=== PATIENT | female | born 1990 | race African-American/Black ===

== ENCOUNTER 2018-06-17 11:30 | Inpatient (IN) | payer OTHER, BC, SELFPAY ==
[2018-06-17 11:48] VITALS: BMI 45.0
[2018-06-17 12:47] LABS: Hematocrit 36.3 % (37-47); Hemoglobin 12.6 g/dl (12.0-15.0); Mean Corp Hgb Conc 34.7 g/gl (32-36); Mean Corpuscular Hgb 29.9 pg (27.0-32.0); Mean Platelet Vol. 10.8 fl (6.2-12.0); Platelet Count 365 K/mm3 (150-450); RBC Distribution Width CV 13.7 % (11.6-14.6); Red Blood Count 4.22 M/mm3 (4.2-5.4); Scan Indicated on CBC? Y/N NO; White Blood Count 16.8 K/mm3 (4.4-11.0)
[2018-06-17] MEDS: Lactated Ringers 1,000 ML 50 ML IV ×2 (13:06→23:47)
[2018-06-17] MEDS: Oxytocin 30 units/NS 500 ml 30 UNITS/500 ML IV.SOLN IV (13:06)
--- NOTE | 2018-06-17 16:31 | PCM.HP.OB ---
History Date of Admission: 06/17/18 Final ALONDRA: 06/18/18 Final ALONDRA Source: US <20 weeks Gestational age: 39 Weeks and 6 Days History of this : This is a 27 year-old, G 1 P0, at 39.5 weeks gestational age with SROM in office during routine exam. pt had clear fluid- confirmed with speculum exam during visit. pt denies vaginal bleeding or contractions. Allergies No Known Allergies Allergy (Verified 06/17/18 12:42) Home Medications: Home Medications Vits [Prenatabs FA] 1 tablet PO DAILY 06/17/18 Smoking Status: Never smoker Alcohol: None Number of Fetus(es): 1 Heart Tracin mod karmen, + accels no decels TOCO Analysis: occasional History Past Pregnancies: Past Pregnancies Delivery Date Name GA/Weeks Outcome Route Weight Infant Gender Labor Length Anesthesia Delivery Location Provider FOB Labs: O+, HIV neg, hep b neg, rub imm, syphilis neg, gbs Positive Expected Infant Delivery Method: Spontaneous Vaginal Physical Exam General: Alert, Oriented x3 Abdomen: Soft, Non Tender, Gravid Neurological: Cranial nerves II-XII grossly intact SCALE SHOOTER: Normal external genitalia Estimated gestational size: Appropriate for gestational size Presentation: Cephalic Cervix Dilation (cm): 1 Station: -2 Effacement (%): 80 Assessment/Plan This is a 27 year-old, G 1P0 at 39.6 weeks gestational age with SROM, not in labor. 1) admit to L&D 2) Monitor fhr/toco 3) anticipate 4) Pitocin for induction of labor 5) PCN for GBS prophylaxis
[2018-06-17] MEDS: Nalbuphine 10 MG/ML Ampul IV (17:39)
[2018-06-17] MEDS: fentaNYL-bupivacaine (epidural) 100 ML BAG EPIDURAL (19:56)
[2018-06-18 02:31] LABS: Bacteria 0 SEEN /hpf (None Seen); Mucous, Urine 0 SEEN /hpf (<or=2+); Squamous Epithelial Cells - UA 0 SEEN /hpf (5-10)
[2018-06-18 02:34] LABS: Color, Urine Yellow (Yellow); Glucose, Dipstick Normal (Normal); Ketone-Dipstick 50 mg/dl (Negative); Leukocyte Esterase-Dipstick 25 /ul (Negative); Nitrite-Dipstick Negative (Negative); Occult Blood-Urine 250 /ul (Negative); Protein-Dipstick 15 mg/dl (Negative); Urine Bilirubin Dipstick Negative (Negative); Urine Clarity Clear (Clear); Urine Urobilinogen Normal (Normal)
[2018-06-18 02:42] LABS: Red Blood Cells-Urine 5-10 SEEN /hpf (0-5); White Blood Cells 0-5 SEEN /hpf (0-5)
[2018-06-18] MEDS: Oxytocin 30 units/NS 500 ml 30 UNITS/500 ML IV.SOLN 334 UNITS IV (05:22)
--- NOTE | 2018-06-18 05:36 | PCM.OB.VAG ---
Vaginal Delivery Maternal Presentation: Spontaneous Rupture of Membranes Method of Induction: Pitocin Amniotic Membrane Rupture Type: Spontaneous at home - in office 11:10am on 06/17/18 Amniotic Fluid Description: Clear Final ALONDRA: 06/18/18 Gestational age: 40 Weeks and 0 Days Date of Procedure: 06/18/18 Pre-Operative Diagnosis: srom, term gestation Post-Operative Diagnosis: same, live female infant Surgery/ Procedure Performed: Spontaneous Vaginal Delivery Type of Anesthesia: Epidural Description of Procedure: of live female born without complication. infant delivered with gentle downward traction until delivery of anterior shoulder- good maternal pushing effort. Presentation: Vertex Placental Delivery Description: Spontaneous Placenta Disposition: [facility] Cord Vessel Description: 3 Vessels Nuchal Cord Compression: Without compression Cord Entanglement: None Drain: Salas to straight drain Estimated Blood Loss: 250 A gender: Female (1 minute): 9 (5 minute): 10 Episiotomy Description: None Laceration: Perineal Extension/lac - repaired with 2-0 vicryl and 3-0 rapide, 2nd degree Medications given after delivery: IV Pitocin Complications: None
[2018-06-18] MEDS: Oxytocin 30 units/NS 500 ml 30 UNITS/500 ML IV.SOLN 167 UNITS IV (05:52)
[2018-06-18] MEDS: Naproxen 250 MG Tablet PO (08:52)
[2018-06-18] MEDS: Dibucaine 30 GM Tube 1 APPLIC TOPICAL (08:53)
[2018-06-18] MEDS: Senna/Docusate Sodium 1 Tablet PO (12:49)
[2018-06-18] MEDS: oxyCODONE 5 MG Tablet PO ×3 (12:50→23:04)
[2018-06-18 12:52] VITALS: BP 93/53; PULSE 88; RESP 20; TEMP 36.1
[2018-06-18 16:00] VITALS: BP 104/72; PULSE 108; RESP 18; TEMP 36.9
[2018-06-18 20:20] VITALS: BP 123/58; PULSE 100; RESP 18; TEMP 36.3; O2SAT 98
[2018-06-19 00:50] VITALS: BP 131/62; PULSE 85; RESP 18; TEMP 36.3; O2SAT 100
[2018-06-19 04:35] VITALS: BP 101/61; PULSE 94; RESP 16; TEMP 36.8; O2SAT 100
[2018-06-19 08:15] VITALS: BP 110/62; PULSE 89; RESP 16; TEMP 37.3
[2018-06-19] MEDS: Naproxen 250 MG Tablet PO (08:15)
--- NOTE | 2018-06-19 08:43 | PCM.PN.OB ---
Subjective: Patient sitting up in bed with at bedside providing support. Patient reports she was able to sleep okay through the night. Patient and reports feelings of anxious when baby had spit up. Patient notes baby is intermittently latching without difficulty, other times patient needs assistance to help baby latch. Patient denies issues with urination or ambulation. Denies scotoma, DAVID or dizziness. Objective: Nipples with a few ecchymoses at nipple tips, no cracks or blisters noted Abdomen NT x 4 quadrants, FF midline @ 1FB below umbilicus +2/4 reflexes in LE, trace pedal edema Scant rubra lochia, perineum well-approximated Negative calf tenderness to palpation BL in LE - Physical Exam General: Alert, Oriented x3, Cooperative HEENT: Atraumatic, Normocephalic Neck: Supple Lungs: Normal air movement Cardiovascular: Regular rate, No murmurs Abdomen: Soft, Non Tender Extremities: No edema, Capillary Refill Less than 3 Seconds Skin: No rashes, No breakdown Musculoskeletal: No Tenderness to Palpation of Joints or Extremities Neurological: Cranial nerves II-XII grossly intact Psych/Mental Status: Normal Affect, Appropriate Vital Signs Temp Pulse Resp BP Pulse Ox 98.3 F 94 16 101/61 100 06/19/18 04:35 06/19/18 04:35 06/19/18 04:35 06/19/18 04:35 06/19/18 04:35 Oxygen Delivery Method Room Air Weight: 262 lb 5.601 oz Body Mass Index (BMI) 45.0 Intake and Output for Last 24 Hours 06/17/18 06/18/18 06/19/18 23:59 23:59 23:59 Intake Total 3649 / 3649 Output Total 2550 / 2550 Balance 1099 / 1099 Medical Necessity - Tobacco Use Smoking Status: Never smoker Assessment/Plan A: 27 y/o s/p , PPD #1, Normal Course P: 1) Anticipatory teaching done - normal s/s including coughing, sneezing and spitting up excess amniotic fluid reviewed 2) consultation today 3) Anticipate discharge to home tomorrow Tila Augustine APRN-CHRISTINA
[2018-06-19] MEDS: Senna/Docusate Sodium 1 Tablet PO (10:19)
[2018-06-19 13:48] VITALS: BP 112/58; PULSE 90; RESP 16; TEMP 36.4
[2018-06-19 21:54] VITALS: BP 111/59; PULSE 102; RESP 18; TEMP 36.6; O2SAT 98
[2018-06-20 02:20] VITALS: BP 101/64; PULSE 83; RESP 18; TEMP 36.3; O2SAT 100
--- NOTE | 2018-06-20 08:57 | PCM.PN.OB ---
Subjective: Doing well per patient and nursing staff. with minimal difficulty. Voiding and passing flatus. Ambulating and taking PO without difficulty. Denies headache, visual changes, chest pain, shortness of breath, increased vaginal bleeding or pain. Planning D/C home today. - Physical Exam General: Alert, Oriented x3, Cooperative Lungs: Clear to auscultation, Normal air movement, No rhonchi, No wheeze Cardiovascular: Regular rate, Regular Rhythm, No murmurs Abdomen: Bowel Sounds Present, Soft, - - Fundus firm 2 below U Extremities: No edema Psych/Mental Status: Normal Affect, Appropriate Vital Signs Temp Pulse Resp BP Pulse Ox 97.4 F L 83 18 101/64 100 06/20/18 02:20 06/20/18 02:20 06/20/18 02:20 06/20/18 02:20 06/20/18 02:20 Oxygen Delivery Method Room Air Weight: 262 lb 5.601 oz Body Mass Index (BMI) 45.0 Intake and Output for Last 24 Hours 06/18/18 06/19/18 06/20/18 23:59 23:59 23:59 Intake Total 3649 / 3649 Output Total 2550 / 2550 Balance 1099 / 1099 Medical Necessity - Tobacco Use Smoking Status: Never smoker Assessment/Plan A: PPD #2 P: 1) Planning D/C home today. D/C order placed and instructions given. 2) Follow up in 2 weeks and 6 weeks for visit.
--- NOTE | 2018-06-20 09:00 | PCM.DCVAG ---
Discharge Diet: No Restrictions Discharge Activity: Return to Normal Activity, May not drive while taking narcotic pain medications., May Shower, May Take a Tub Bath May resume sexual activity in: 4-6 weeks Weight Bearing Status: Weight bearing as tolerated Call your doctor if your incision/area has: Continuous Slow Oozing, Sudden Increased Bleeding, Increased Pain/ Swelling, Increased Redness, Foul Smelling Discharge Call your doctor if you observe: Fever of 101 or Higher, Numbness or Tingling, Inability to urinate, Inability to have a bowel movement, Using more than one pad per hour, Shortness of breath, Chest pain, Increased palpitations (irregular heartbeat), Calf discomfort, Uncontrolled pain Additional Instructions: If you experience any of the following, contact your healthcare provider. Bleeding that soaks a pad every hour for 2 hours Fever 100.4 or higher Unrelieved incision or abdominal pain Swelling, redness, discharge or bleeding from your incision or episiotomy site Your incision begins to separate Problems urinating (including inability to urinate or burning while urinating). Visual changes Severe headache Flu-like symptoms Pain or redness in one of both of your breasts Pain, warmth, tenderness or swelling in your legs, especially the calf area Frequent nausea and vomiting Symptoms of depression or anxiety If you experience any of the following, call 911 or go to the nearest Emergency Room. Chest pain Problems breathing Seizure activity Partial or complete paralysis of a body part, slurred speech, weakness or drooping of the face, or a sudden inability to walk or hold your balance Allergies/Adverse Reactions: Allergies No Known Allergies Allergy (Verified 06/17/18 12:42) Medications to take at Discharge Vits [Prenatabs FA] 1 tablet PO DAILY 06/17/18 Please Follow Up With: Rhonda El MD When: Call to make an appointment with your doctor in 2 weeks and 6 weeks. If you had elevated Blood Pressure or 4th degree laceration you will need to be seen in 2 weeks. Primary Care Physician: Care Physician,No Primary [Primary Care Provider] - Test Results: Test results from this visit will be discussed in further detail at your follow-up appointment, if applicable.
[2018-06-20 09:18] VITALS: BP 108/69; PULSE 84; RESP 24; TEMP 36.2; O2SAT 97
[2018-06-20 14:45] VITALS: BP 106/66; PULSE 91; TEMP 36.4; O2SAT 96
== END 2018-06-20 16:25 | disposition home or self-care (01) | DRG 775 ==
PROVIDERS: Admitting Provider Obstetrics & Gynecology; Visit Provider Obstetrics & Gynecology
DX: O42.02 Full-term premature rupture of membranes, onset of labor within 24 hours of rupture (principal); O70.1 Second degree perineal laceration during delivery; O99.824 Streptococcus B carrier state complicating childbirth; Z3A.40 40 weeks gestation of pregnancy; Z37.0 Single live birth
CPT/HCPCS: 59025; 59050; 81001; 85027; 86850; 86900; 99218; J7120; G0378

== ENCOUNTER → 2020-12-05 10:22 | Outpatient (CLI) | payer OTHER, SELFPAY | PROVIDERS: PCP Student in an Organized Health Care Education/Training Program; Visit Provider Obstetrics & Gynecology | DX: Z03.818 Encounter for observation for suspected exposure to other biological agents ruled out (principal) | CPT/HCPCS: 87635; C9803; U0002; U0003 ==

== ENCOUNTER 2020-12-07 14:05 | Inpatient (IN) | payer OTHER, SELFPAY ==
[2020-12-07] VITALS (38 sets, daily range): BP systolic 92–156; BP diastolic 51–89; PULSE 69–198; TEMP 36.6–37.7; O2SAT 98–100; BMI 48.2
[2020-12-07 14:04] LABS: ROM Internal Control Test YES-OK TO RESULT pt. (Internal QC)
[2020-12-07 14:05] LABS: ROM Patient Test POSITIVE (Negative)
--- NOTE | 2020-12-07 14:14 | NURSING ---
lab called 1305 and MATTEO positive
[2020-12-07] MEDS: Lactated Ringers 1,000 ML 50 ML IV (14:40)
[2020-12-07 14:56] LABS: Absolute Lymphocyte Count 2.75 X10^3/uL (0.83-4.51); Absolute Neutrophil Count 13.3 X10^3/uL (2.0-7.7); Basophil# 0.03 X10^3/uL; Basophil% 0.2 % (0-1); Eosinophil# 0.16 X10^3/uL; Eosinophils% 0.9 % (0-5); Hematocrit 38.6 % (37-47); Lymphocyte # 2.75 X10^3/ul (4.0); Lymphocyte % 15.8 % (19-41); Mean Corp Hgb Conc 33.7 g/dL (32-36); Mean Corpuscular Hgb 29.1 pg (27.0-32.0); Mean Corpuscular Volume 86.5 fL (81-99); Mean Platelet Vol. 10.5 fl (6.2-12.0); Monocyte# 1.05 X10^3/uL; NRBC Flagged by Analyzer 0 % (0-5); Neutrophil # 13.33 X10^3/uL (2.7-7.7); Neutrophil % 76.3 % (47-70); Platelet Count 363 K/mm3 (150-450); RBC Distribution Width CV 14.1 % (11.6-14.6); RBC Distribution Width SD 44.2 fl (35.1-43.9); Red Blood Count 4.46 M/mm3 (4.2-5.4); White Blood Count 17.5 K/mm3 (4.4-11.0)
[2020-12-07] MEDS: Oxytocin 30 units/NS 500 ml 30 UNITS/500 ML IV.SOLN IV (15:03)
[2020-12-07] MEDS: fentaNYL 100 MCG/2 ML Ampul IV (17:34)
--- NOTE | 2020-12-07 17:45 | PCM.HP.OB ---
- Problem List (1) Obesity affecting Status: Acute (2) History of spontaneous Status: Acute (3) Positive GBS test Status: Acute (4) PROM (premature rupture of membranes) Status: Acute History Date of Admission: 06/17/18 Final ALONDRA: 12/13/20 Final ALONDRA Source: US <20 weeks Gestational age: 39 Weeks and 1 Days History of this : This is a 30 year-old, G [3], P [1011], at 39 weeks gestational age is to labor and delivery room with gross rupture of membranes. No contractions at time of arrival. Rupture of membranes around 11 AM today. Denied any vaginal bleeding. Good movement. complicated by obesity with pregravid BMI 45.6 and no weight gain during . Allergies No Known Allergies Allergy (Verified 06/17/18 12:42) Home Medications: Home Medications Vits [Prenatabs FA] 1 tablet PO DAILY 06/17/18 Smoking Status: Never smoker Alcohol: None Number of Fetus(es): 1 NST - FHR Rate Baby A Baseline: 130 Variability:: Moderate Accelerations:: 15 x 15 Decelerations:: None FHR Category:: Category I Uterine Activity:: Irregular 2-3 mintues, mild History Past Pregnancies: Past Pregnancies Delivery Date Name GA/ Weeks Outcome Route Wt Sex Labor Length Anesthesia Delivery Location Provider FOB Labs: COVID 19 negative GBS positive RPR negative 1hr gct 102 normal GC/CT negative Urine tox screen negative RPR negative Rubella Immune HBsAG negative HIV negative O positive HepCAB negative Expected Infant Delivery Method: Spontaneous Vaginal Review of Systems Constitutional: Denies: Chills, Fever, Weight Change HEENT: Denies: Head Aches, Sinus Congestion, Sinus Drainage Cardiovascular: Denies: Chest Pain, Palpitations Respiratory: Denies: Cough, Shortness of breath at rest, Sputum production Gastrointestinal: Denies: Abdominal Pain, Nausea, Vomiting Genitourinary: Denies: Dysuria Musculoskeletal: Denies: Joint Pain, Joint Tenderness Skin: Denies: Rash, Wounds Neurological: Denies: Numbness, Tingling, Focal weakness Psychiatric: Denies: Anxiety, Depression, Homicidal Ideations, Suicidal Ideations Hematologic/ Lymphatic: Denies: Easy Bruising, Easy Bleeding Physical Exam Vitals: Vital Signs Temp Pulse BP 98.8 F 97 133/80 H 12/07/20 13:38 12/07/20 16:55 12/07/20 16:55 Presentation: Cephalic Cervix Dilation (cm): 1 - Per nursing staff Station: -2 Effacement (%): 70 Assessment/Plan All Active Problems Obesity affecting (Acute) History of spontaneous (Acute) Positive GBS test (Acute) PROM (premature rupture of membranes) (Acute) This is a 30 year-old, G [3], P [1011], at 39 weeks gestational age. PROM Category 1 Maternal Obesity 1) Admit to labor and delivery 2) routine labs. 3) COVID-19 negative 4) GBS positive. Will treat with penicillin G 5 million then 3 million IV every 4 hours until delivery. 5) PROM, will initiate active management and Pitocin titration per protocol 6) continuous EFM 7) epidural for pain management 8) Dr. Rico collaborative physician and notified of patient admission and status
[2020-12-07] MEDS: Lactated Ringers 500 ML 999 ML IV ×3 (17:57→20:40)
[2020-12-07] MEDS: fentaNYL-bupivacaine (epidural) 100 ML BAG EPIDURAL (19:08)
[2020-12-07] MEDS: Amnioinfusion- 0.9% NS 1,000 ML IV.SOLN. INTRA-UTER (20:54)
[2020-12-07] MEDS: Oxytocin 30 units/NS 500 ml 30 UNITS/500 ML IV.SOLN 334 UNITS IV (21:45)
--- NOTE | 2020-12-07 22:05 | PCM.OPRPT ---
Problem List (1) Obesity affecting Status: Acute (2) History of spontaneous Status: Acute (3) Positive GBS test Status: Acute (4) PROM (premature rupture of membranes) Status: Acute (5) Vaginal delivery Status: Acute (6) First degree perineal laceration Status: Acute Vaginal Delivery Maternal Presentation: Spontaneous Rupture of Membranes Method of Induction: Pitocin Amniotic Membrane Rupture Type: Spontaneous at home Amniotic Fluid Description: Clear Final ALONDRA: 12/15/20 Gestational age: 38 Weeks and 6 Days Date of Procedure: 12/07/20 Pre-Operative Diagnosis: PROM Post-Operative Diagnosis: , first degree perineal laceration Surgery/ Procedure Performed: Spontaneous Vaginal Delivery Type of Anesthesia: Epidural Description of Procedure: Progressed to complete with FHR down to 75-90s with variable decelerations. Epidural for pain management and effective. Pushing initiated and strong effort. of viable male over first degree perineal laceration at 2140. APGARS 7,9. Infant head delivered with nuchal cord x2, delivered through. placed on maternal abdomen, mouth and nares suctioned for secretions. with poor tone and respiratory effort, Cord doubly clamped and cut, handed to awaiting nursery staff, strong cry. Pitocin started for active 3rd stage management. Placenta delivered with expression, intact, 3 vessel cord. Perineum inspected and revealed first degree perineal laceration, repaired with 3.0 vicryl rapide. Vaginal sweep completed. Fundus firm and hemostasis achieved. EBL 300ml. Sponge and instrument count correct by me. Mom and baby stable, planning to breastfeed, family bonding well. notified of patient delivery. Presentation: Vertex Placental Delivery Description: Spontaneous Placenta Disposition: [facility] Cord Vessel Description: 3 Vessels Nuchal Cord Compression: Without compression Cord Gases drawn per routine: ABG, VBG Cord Entanglement: Around neck x 2, loose Estimated Blood Loss: 300 ml A gender: Male (1 minute): 7 (5 minute): 9 Episiotomy Description: None Laceration: None Medications given after delivery: IV Pitocin Complications: None
[2020-12-08] VITALS (13 sets, daily range): BP systolic 109–127; BP diastolic 54–67; PULSE 75–104; RESP 14–18; TEMP 36.5–37.7; O2SAT 98–99
[2020-12-08] MEDS: 0.9% Saline Lock 10 ML Syringe IV (00:11)
--- NOTE | 2020-12-08 04:54 | NURSING ---
pt missed hat in toilet at this time
[2020-12-08] MEDS: Ibuprofen 600 MG Tablet PO ×2 (05:47→16:46)
[2020-12-08] MEDS: Acetaminophen 500 MG Tablet 1000 MG PO ×2 (06:01→21:59)
[2020-12-08 06:04] LABS: Hematocrit 35.3 % (37-47); Hemoglobin 11.7 g/dL (12.0-15.0); Mean Corp Hgb Conc 33.1 g/dL (32-36); Mean Corpuscular Hgb 28.6 pg (27.0-32.0); Mean Corpuscular Volume 86.3 fL (81-99); Mean Platelet Vol. 10.8 fl (6.2-12.0); Platelet Count 295 K/mm3 (150-450); RBC Distribution Width CV 14.2 % (11.6-14.6); RBC Distribution Width SD 43.9 fl (35.1-43.9); Red Blood Count 4.09 M/mm3 (4.2-5.4); White Blood Count 18.7 K/mm3 (4.4-11.0)
--- NOTE | 2020-12-08 08:21 | PCM.PN.OB ---
Patient Problems: Active and Suspected Problems Obesity affecting (Acute) History of spontaneous (Acute) Positive GBS test (Acute) PROM (premature rupture of membranes) (Acute) Vaginal delivery (Acute) First degree perineal laceration (Acute) Subjective: Patient seen at bedside. Sitting in rocking chair with baby. going well. Patient ambulating and voiding without difficulty. Unsure if desires discharge home tonight or tomorrow. - Physical Exam Vitals/I&O's: Vital Signs Temp Pulse Resp BP Pulse Ox 99.8 F H 104 H 18 119/58 L 99 12/08/20 03:19 12/08/20 03:20 12/08/20 03:19 12/08/20 03:20 12/08/20 00:18 Oxygen Delivery Method Room Air Weight: 272 lb 9.6 oz Body Mass Index (BMI) 48.2 Intake and Output for Last 24 Hours 12/06/20 12/07/20 12/08/20 23:59 23:59 23:59 Intake Total 2445.85 / 2445.85 333 / 333 Output Total 700 / 700 Balance 2445.85 / 2445.85 -367 / -367 General: Alert, Oriented x3 HEENT: Atraumatic, PERRLA, EOMI, Normocephalic Neck: Supple, No JVD Lungs: Normal air movement Cardiovascular: Regular rate Abdomen: Soft, Non Tender Extremities: No edema, Capillary Refill Less than 3 Seconds Skin: No rashes Neurological: Cranial nerves II-XII grossly intact Laboratory Results 12/07/20 13:45: Vag Amniotic Fld Detect POSITIVE H 12/07/20 14:40: WBC 17.5 H, RBC 4.46, Hgb 13.0, Hct 38.6, MCV 86.5, MCH 29.1, MCHC 33.7, RDW Std Deviation 44.2 H, RDW Coeff of Tiburcio 14.1, Plt Count 363, MPV 10.5, Immature Gran % (Auto) 0.800, Neut % (Auto) 76.3 H, Lymph % (Auto) 15.8 L, [place] % (Auto) 6.0, Eos % (Auto) 0.9, Baso % (Auto) 0.2, Absolute Neuts (auto) 13.3 H, Absolute Lymphs (auto) 2.75, Nucleated RBC % 0 12/07/20 14:40: Blood Type O POSITIVE, Antibody Screen NEGATIVE 12/08/20 05:53: WBC 18.7 H, RBC 4.09 L, Hgb 11.7 L, Hct 35.3 L, MCV 86.3, MCH 28.6, MCHC 33.1, RDW Std Deviation 43.9, RDW Coeff of Tiburcio 14.2, Plt Count 295, MPV 10.8 Current Medications Acetaminophen (Acetaminophen 500 Mg Tablet) 1,000 mg PO Q8H PRN PRN PRN Reason: Pain Score 1-3 Last Admin: 12/08/20 06:01 Dose: 1,000 mg Documented by: Bisacodyl (Bisacodyl 10 Mg Suppository) 10 mg RECTAL UD PRN PRN Reason: If no BM Dibucaine (Dibucaine 30 Gm Tube) 1 applic TOPICAL TID PRN PRN; Protocol PRN Reason: Discomfort Hydrocortisone (Hydrocortisone 2.5% Crm) 1 applic TOPICAL TID PRN PRN; Protocol PRN Reason: Discomfort Ibuprofen (Ibuprofen 600 Mg Tablet) 600 mg PO Q6H PRN PRN PRN Reason: Pain Score 1-3 Last Admin: 12/08/20 05:47 Dose: 600 mg Documented by: Methylergonovine Maleate (Methylergonovine 0.2 Mg/Ml Ampul) 0.2 mg IM X1 PRN PRN Reason: Excess bleeding/uterine atony Ondansetron HCl (Ondansetron 4 Mg/2 Ml Vial) 4 mg IV Q4H PRN PRN PRN Reason: Nausea Senna/Docusate Sodium (Senna/Docusate Sodium 1 Tablet) 1 - 2 tablet PO DAILY PRN PRN PRN Reason: Constipation Simethicone (Simethicone 80 Mg Tablet) 80 mg PO PCHS PRN PRN Reason: Indigestion/Stomach pain Sodium Chloride (0.9% Saline Lock 10 Ml Syringe) 5 - 15 ml IV UD PRN PRN Reason: SALINE FLUSH Last Admin: 12/08/20 00:11 Dose: 10 ml Documented by: Medical Necessity - Tobacco Use Smoking Status: Never smoker Assessment/Plan All Active Problems Obesity affecting (Acute) History of spontaneous (Acute) Positive GBS test (Acute) PROM (premature rupture of membranes) (Acute) Vaginal delivery (Acute) First degree perineal laceration (Acute) PPD #1 - 1st degree laceration Pain control Routine care Breast feeding support Anticipate discharge home tomorrow
[2020-12-09 02:13] VITALS: BP 136/71; PULSE 87; RESP 18; TEMP 36.7
[2020-12-09 02:17] VITALS: BP 136/71; PULSE 87
[2020-12-09 08:30] VITALS: BP 129/76; PULSE 88; RESP 14; TEMP 36.8
--- NOTE | 2020-12-09 09:05 | PCM.PN.OB ---
Patient Problems: Active and Suspected Problems Obesity affecting (Acute) History of spontaneous (Acute) Positive GBS test (Acute) PROM (premature rupture of membranes) (Acute) Vaginal delivery (Acute) First degree perineal laceration (Acute) Subjective: No complaints - Physical Exam Vitals/I&O's: Vital Signs Temp Pulse Resp BP Pulse Ox 98.1 F 87 18 136/71 H 98 12/09/20 02:13 12/09/20 02:17 12/09/20 02:13 12/09/20 02:17 12/08/20 19:56 Oxygen Delivery Method Room Air Weight: 272 lb 9.6 oz Body Mass Index (BMI) 48.2 Intake and Output for Last 24 Hours 12/07/20 12/08/20 12/09/20 23:59 23:59 23:59 Intake Total 2445.85 / 2445.85 333 / 333 Output Total 700 / 700 Balance 2445.85 / 2445.85 -367 / -367 General: Alert, Oriented x3 Abdomen: Soft, Non Tender, Non-Distended - ff mid & below umb Current Medications Acetaminophen (Acetaminophen 500 Mg Tablet) 1,000 mg PO Q8H PRN PRN PRN Reason: Pain Score 1-3 Last Admin: 12/08/20 21:59 Dose: 1,000 mg Documented by: Bisacodyl (Bisacodyl 10 Mg Suppository) 10 mg RECTAL UD PRN PRN Reason: If no BM Dibucaine (Dibucaine 30 Gm Tube) 1 applic TOPICAL TID PRN PRN; Protocol PRN Reason: Discomfort Hydrocortisone (Hydrocortisone 2.5% Crm) 1 applic TOPICAL TID PRN PRN; Protocol PRN Reason: Discomfort Ibuprofen (Ibuprofen 600 Mg Tablet) 600 mg PO Q6H PRN PRN PRN Reason: Pain Score 1-3 Last Admin: 12/08/20 16:46 Dose: 600 mg Documented by: Methylergonovine Maleate (Methylergonovine 0.2 Mg/Ml Ampul) 0.2 mg IM X1 PRN PRN Reason: Excess bleeding/uterine atony Ondansetron HCl (Ondansetron 4 Mg/2 Ml Vial) 4 mg IV Q4H PRN PRN PRN Reason: Nausea Senna/Docusate Sodium (Senna/Docusate Sodium 1 Tablet) 1 - 2 tablet PO DAILY PRN PRN PRN Reason: Constipation Simethicone (Simethicone 80 Mg Tablet) 80 mg PO PCHS PRN PRN Reason: Indigestion/Stomach pain Sodium Chloride (0.9% Saline Lock 10 Ml Syringe) 5 - 15 ml IV UD PRN PRN Reason: SALINE FLUSH Last Admin: 12/08/20 00:11 Dose: 10 ml Documented by: Medical Necessity - Tobacco Use Smoking Status: Never smoker Assessment/Plan All Active Problems Obesity affecting (Acute) History of spontaneous (Acute) Positive GBS test (Acute) PROM (premature rupture of membranes) (Acute) Vaginal delivery (Acute) First degree perineal laceration (Acute) PPD#2 D/c home
--- NOTE | 2020-12-09 09:06 | DCINST_ITS ---
Discharge Diet: No Restrictions Discharge Activity: May Drive, May Shower May resume sexual activity in: 6 weeks Additional Instructions: If you experience any of the following, contact your healthcare provider. * Bleeding that soaks a pad every hour for 2 hours * Fever 100.4 or higher * Unrelieved incision or abdominal pain * Swelling, redness, discharge or bleeding from your incision or episiotomy site * Your incision begins to separate * Problems urinating (including inability to urinate or burning while urinating). * Visual changes * Severe headache * Flu-like symptoms * Pain or redness in one of both of your breasts * Pain, warmth, tenderness or swelling in your legs, especially the calf area * Frequent nausea and vomiting * Symptoms of depression or anxiety If you experience any of the following, call 911 or go to the nearest Emergency Room. * Chest pain * Problems breathing * Seizure activity * Partial or complete paralysis of a body part, slurred speech, weakness or drooping of the face, or a sudden inability to walk or hold your balance Allergies/Adverse Reactions: Allergies No Known Allergies Allergy (Verified 06/17/18 12:42) Medications to take at Discharge Vits [Prenatabs FA ] 1 tablet PO DAILY 06/17/18 Acetaminophen [Tylenol] 1,000 mg PO Q8H PRN PRN tablet 12/09/20 Ibuprofen [Motrin] 600 mg PO Q6H PRN PRN tablet 12/09/20 Primary Care Physician: Vinny Williamson DO [Primary Care Provider] - Test Results: Test results from this visit will be discussed in further detail at your follow- up appointment, if applicable.
--- NOTE | 2020-12-09 09:06 | PCM.DCVAG ---
Discharge Diet: No Restrictions Discharge Activity: May Drive, May Shower May resume sexual activity in: 6 weeks Additional Instructions: If you experience any of the following, contact your healthcare provider. Bleeding that soaks a pad every hour for 2 hours Fever 100.4 or higher Unrelieved incision or abdominal pain Swelling, redness, discharge or bleeding from your incision or episiotomy site Your incision begins to separate Problems urinating (including inability to urinate or burning while urinating). Visual changes Severe headache Flu-like symptoms Pain or redness in one of both of your breasts Pain, warmth, tenderness or swelling in your legs, especially the calf area Frequent nausea and vomiting Symptoms of depression or anxiety If you experience any of the following, call 911 or go to the nearest Emergency Room. Chest pain Problems breathing Seizure activity Partial or complete paralysis of a body part, slurred speech, weakness or drooping of the face, or a sudden inability to walk or hold your balance Allergies/Adverse Reactions: Allergies No Known Allergies Allergy (Verified 06/17/18 12:42) Medications to take at Discharge Vits [Prenatabs FA ] 1 tablet PO DAILY 06/17/18 Acetaminophen [Tylenol] 1,000 mg PO Q8H PRN PRN tablet 12/09/20 Ibuprofen [Motrin] 600 mg PO Q6H PRN PRN tablet 12/09/20 Primary Care Physician: Vinny Williamson DO [Primary Care Provider] - Test Results: Test results from this visit will be discussed in further detail at your follow-up appointment, if applicable.
[2020-12-09 09:26] VITALS: BP 120/68; PULSE 93
[2020-12-09] MEDS: Senna/Docusate Sodium 1 Tablet PO (09:36)
[2020-12-09] MEDS: Ibuprofen 600 MG Tablet PO (09:37)
[2020-12-09 12:32] VITALS: BP 124/68; PULSE 72; RESP 16; TEMP 36.8
== END 2020-12-09 12:45 | disposition home or self-care (01) | DRG 807 ==
LOC: WPOUT 14:15 → WP 14:15
PROVIDERS: Admitting Provider Advanced Practice Midwife; PCP Student in an Organized Health Care Education/Training Program; Referring Provider Advanced Practice Midwife; Visit Provider Advanced Practice Midwife
DX: O42.92 Full-term premature rupture of membranes, unspecified as to length of time between rupture and onset of labor (principal); Z37.0 Single live birth; O99.824 Streptococcus B carrier state complicating childbirth; E66.9 Obesity, unspecified; O99.214 Obesity complicating childbirth; O76 Abnormality in fetal heart rate and rhythm complicating labor and delivery; Z3A.38 38 weeks gestation of pregnancy; O70.0 First degree perineal laceration during delivery; O69.81X0 Labor and delivery complicated by cord around neck, without compression, not applicable or unspecified
CPT/HCPCS: 59050; 84112; 85025; 85027; 86850; 86900; 86901; 99218; J7030; J7120; A4216; G0378

== ENCOUNTER 2022-05-02 07:00 | Inpatient (IN) | payer OTHER, SELFPAY ==
[2022-05-02] VITALS (74 sets, daily range): BP systolic 101–160; BP diastolic 54–82; PULSE 94–130; RESP 16; TEMP 36.1–37.1; O2SAT 85–100; BMI 48.3
[2022-05-02] MEDS: Lactated Ringers 1,000 ML 50 ML IV (07:35)
[2022-05-02] MEDS: 0.9% Normal Saline Single 100 ML IV.SOLN. INTRA-UTER (07:45)
--- NOTE | 2022-05-02 07:50 | PCM.HP.OB ---
HPI - General General Date of Admission: 05/02/22 HPI Narrative KEENA FRAUSTO, is a 31 F at 39 weeks who presents for induction of labor due to morbid obesity and BMI of 48. Maternal Data Information Final ALONDRA: 05/09/22 Gestational age: 39 weeks PFSH PFSH Home Medications vits,calcium no.78-iron fumarate-folic acid 29 mg-1 mg tablet (Prenatabs FA) 1 tab PO DAILY 06/17/18 [History Last Taken 12/07/20] acetaminophen 500 mg tablet 1,000 mg PO Q8H PRN PRN Pain Score 1-3 05/02/22 [History Last Taken Unknown] aspirin 05/02/22 [History Last Taken 04/29/22 81 mg] Allergy/AdvReac Type Severity Reaction Status Date / Time No Known Allergies Allergy Verified 05/02/22 07:41 Family History (Updated 05/02/22 @ 08:04 by Eli Valentin RN) Father Diabetes Grandmother Cancer Surgical History Hx of tonsillectomy [place] teeth removed Social History Smoking Status: Never smoker History Elective abortions Hx Para 2 Spontaneous abortions Hx # Term Pregnancies Ectopic pregnancies Hx # Pregnancies Multiple births # of living children NST FHR Rate Baby A Baseline: 125 Variability:: Moderate Accelerations:: 15 x 15 FHR Category:: Category I Uterine Activity:: Infrequent ROS Constitutional Constitutional: Reports systems reviewed and no addt'l complaints, except as documented; Denies headache(s) Eyes Eyes: Denies acute decrease in peripheral vision, blurry vision or change in vision ENT HEENT: Reports systems reviewed and no addt'l complaints, except as documented Cardiovascular Cardiovascular: Denies chest pain or dizziness Respiratory/Chest Respiratory/Chest: Denies cough, dyspnea, dyspnea on exertion, shortness of breath at rest or shortness of breath with exertion Gastrointestinal Gastrointestinal: Denies abdominal pain, diarrhea, nausea or vomiting Genitourinary Genitourinary: Denies abdominal discomfort or movement Musculoskeletal Musculoskeletal: Denies limited range of motion Integumentary Integumentary: Reports systems reviewed and no addt'l complaints, except as documented Neurologic Neurologic: Reports systems reviewed and no addt'l complaints, except as documented Psychiatric Psychiatric: Reports systems reviewed and no addt'l complaints, except as documented Endocrine Endocrinology: Reports systems reviewed and no addt'l complaints, except as documented Hematologic/Lymphatic Hematologic/Lymphatic: Reports systems reviewed and no addt'l complaints, except as documented Allergic/Immunologic Allergic/Immunologic: Reports systems reviewed and no addt'l complaints, except as documented Vital Signs Vital Signs Vital Signs: Weight Weight: 273 lb Body Mass Index (BMI) 48.3 Physical Exam Const alert and oriented x3 General Appearance: cooperative Orientation / Consciousness: awake, oriented to person, oriented to place and oriented to time Exam Limitations: no limitations HEENT normocephalic Head and Scalp: normal to inspection, normocephalic and atraumatic Face and Sinus: normal facial exam Eyes General Eye: normal appearance of both eyes Neck full ROM Chest Chest: symmetrical chest wall rise Resp normal respiratory effort and normal air movement Auscultation: clear to auscultation bilaterally Cardio regular rate, regular rhythm, S1 normal heart sound, S2 normal heart sound, no murmurs, no rub, no gallops and no clicks GI normal to inspection, nondistended, normoactive bowel sounds and non-tender appearance of the vagina normal Narrative: Salas catheter inserted in cervix without complications 30ml NS instilled. Patient tolerated well Bladder / Kidney Exam: no CVA tenderness Manual OB Exam: estimated gestational size appropriate, presentation cephalic, dilated 1.5, effaced 60 and station -3 Back/Spine normal ROM Extremity normal to inspection and full ROM Skin no rashes or lesions noted Neuro oriented x3, CN's II-XII intact bilaterally and moves all extremities Sensorium / Orientation: awake, alert and oriented to person Motor Exam: clonus absent Deep Tendon Reflexes: Rt Patellar (L4): 2+ and Lt Patellar (L4): 2+ Labs Labs Labs: Blood Type O POSITIVE Antibody Screen NEGATIVE Hct 35.9 % (37-47) L Hgb 11.7 g/dL (12.0-15.0) L Rhogam given: No HIV negative HepC negative HBsAG negative RPR negative Rubella Immune GBS negative Assessment & Plan (1) Obesity affecting : (2) History of spontaneous : PLAN: Plan 1) Admit to labor and delivery 2) Routine labs 3) Continuous monitoring. 4) GBS negative 5) COVID test 6) Salas with pitocin for induction of labor 7) Dr.Russell gonzalez physician and notified of patient status
[2022-05-02 07:52] LABS: Absolute Lymphocyte Count 2.17 X10^3/uL (0.83-4.51); Absolute Neutrophil Count 8.6 X10^3/uL (2.0-7.7); Basophil# 0.02 X10^3/uL; Basophil% 0.2 % (0-1); Eosinophil# 0.17 X10^3/uL; Eosinophils% 1.4 % (0-5); Hematocrit 35.8 % (37-47); Hemoglobin 11.8 g/dL (12.0-15.0); Lymphocyte # 2.17 X10^3/ul (0.83-4.51); Lymphocyte % 18.2 % (19-41); Mean Corpuscular Hgb 28.7 pg (27.0-32.0); Mean Corpuscular Volume 87.1 fL (81-99); Mean Platelet Vol. 10.6 fl (6.2-12.0); Monocyte# 0.88 X10^3/uL; Monocyte% 7.4 % (0-10); NRBC Flagged by Analyzer 0 % (0-5); Neutrophil # 8.56 X10^3/uL (2.7-7.7); Neutrophil % 71.8 % (47-70); Platelet Count 313 K/mm3 (150-450); RBC Distribution Width CV 14.7 % (11.6-14.6); RBC Distribution Width SD 46.6 fl (35.1-43.9); Red Blood Count 4.11 M/mm3 (4.2-5.4); White Blood Count 11.9 K/mm3 (4.4-11.0)
[2022-05-02] MEDS: Oxytocin 30 units/NS 500 ml 30 UNITS/500 ML IV.SOLN IV (08:43)
[2022-05-02] MEDS: LACTATED RINGERS 500 ML 999 ML IV (12:02)
[2022-05-02] MEDS: fentaNYL-bupivacaine (epidural) 100 ML BAG EPIDURAL (13:13)
[2022-05-02] MEDS: Penicillin G 3,000,000 Units 50 ML 100 UNITS IV (13:18)
[2022-05-02] MEDS: Oxytocin 30 units/NS 500 ml 30 UNITS/500 ML IV.SOLN 334 UNITS IV (15:28)
--- NOTE | 2022-05-02 15:44 | EX.PCM.OBRPT ---
Assessment & Plan (1) Vaginal delivery: (2) First degree perineal laceration: (3) Lactating mother: Maternal Data Information Final ALONDRA: 05/09/22 Vaginal Delivery Maternal Presentation Maternal Presentation: Induction of labor due to obesity Operative Information Date of Procedure: 05/02/22 Pre-Operative Diagnosis: Induction of Labor Post-Operative Diagnosis: with first degree Surgery / Procedure Performed: Spontaneous Vaginal Delivery Type of Anesthesia: Epidural Estimated Blood Loss: 300ml Findings Description of Procedure: Progressed to complete with strong urge to push. Epidural not effective, using nitrous for relief. of viable male infant over 1st degree perineal laceration. head delivered with body forthcoming. Mouth and nares suctioned for secretions. Placed on maternal abdomen, strong cry. Pitocin started for active 3rd stage management. Cord clamped and cut after pulsations ceased. Placenta delivered intact, 3 vessel cord. Perineum inspected and revealed first degree perineal laceration. Repaired under epidural and effective with 3.0 vicryl rapide. Vaginal sweep completed. Sponge and instrument count correct. Mom and baby stable. Planning to breastfeed. Family bonding well. Dr. Peña notified of delivery. Presentation: Vertex Amniotic Membrane Rupture Type: Artificial Placental Delivery Description: Expressed Cord Vessel Description: 3 Vessels Cord Entanglement: Around neck x 1, loose Nuchal Cord Compression: Without compression Infant A Gender: Male (1 minute): 8 (5 minute): 9 Delayed Cord Clamping: Yes Post Vaginal Delivery Medications Given After Delivery: IV Pitocin Episiotomy Description: None Laceration: 1st degree Complication Complications: None
[2022-05-02] MEDS: Acetaminophen 500 MG Tablet 1000 MG PO (17:25)
--- NOTE | 2022-05-02 18:04 | PCM.NUR.HP ---
Subjective Subjective: [id number] for this 39.0 week AGA ( just above 10%) BB born via VD after in duction of labor. 29yo ->3 O+ ( baby O+/C-), HepBsag neg, RI, RPR NR, GC neg, Chl neg, HIV NR, GBS neg, HepCab neg. Parents have a 4yo as well as a 1.5yo and they were both jaundice in period. 1.5yo son had tongue and lip tie and improved feeding after clipping. Baby latched well thus far. Meds include PNV, ASA ,Tyl. PCP: [facility] Objective Objective Data: 05/02/22 08:50 05/02/22 08:50 05/02/22 08:51 Temperature 98.2 F Temperature Source Pulse Rate 97 Blood Pressure 101/57 L BP Systolic 101 BP Diastolic 57 Pulse Ox 05/02/22 08:51 05/02/22 08:51 05/02/22 10:10 Temperature 98.2 F Temperature Source Temporal Pulse Rate Blood Pressure 116/60 BP Systolic 116 BP Diastolic 60 Pulse Ox 05/02/22 10:10 05/02/22 10:10 05/02/22 10:10 Temperature 98.8 F Temperature Source Temporal Pulse Rate 102 H Blood Pressure BP Systolic BP Diastolic Pulse Ox 05/02/22 11:11 05/02/22 11:10 05/02/22 11:11 Temperature 97.9 F Temperature Source Temporal Pulse Rate Blood Pressure 123/76 H BP Systolic 123 BP Diastolic 76 Pulse Ox 05/02/22 11:11 05/02/22 11:11 05/02/22 11:10 Temperature 97.9 F Temperature Source Pulse Rate 101 H Blood Pressure BP Systolic BP Diastolic Pulse Ox 98 05/02/22 12:42 05/02/22 12:42 05/02/22 12:47 Temperature Temperature Source Pulse Rate 120 H 125 H Blood Pressure BP Systolic BP Diastolic Pulse Ox 100 05/02/22 12:47 05/02/22 12:49 05/02/22 12:49 Temperature Temperature Source Pulse Rate 112 H Blood Pressure 122/71 H BP Systolic 122 BP Diastolic 71 Pulse Ox 100 05/02/22 12:52 05/02/22 12:52 05/02/22 12:54 Temperature Temperature Source Pulse Rate 123 H Blood Pressure 125/66 H BP Systolic 125 BP Diastolic 66 Pulse Ox 100 05/02/22 12:54 05/02/22 12:57 05/02/22 12:57 Temperature Temperature Source Pulse Rate 115 H 113 H Blood Pressure BP Systolic BP Diastolic Pulse Ox 100 05/02/22 12:59 05/02/22 12:59 05/02/22 13:02 Temperature Temperature Source Pulse Rate 116 H 106 H Blood Pressure 125/60 H BP Systolic 125 BP Diastolic 60 Pulse Ox 05/02/22 13:02 05/02/22 13:04 05/02/22 13:04 Temperature Temperature Source Pulse Rate 94 Blood Pressure 126/62 H BP Systolic 126 BP Diastolic 62 Pulse Ox 100 05/02/22 13:08 05/02/22 13:08 05/02/22 13:09 Temperature Temperature Source Pulse Rate 104 H Blood Pressure 132/75 H BP Systolic 132 BP Diastolic 75 Pulse Ox 99 05/02/22 13:09 05/02/22 13:13 05/02/22 13:13 Temperature Temperature Source Pulse Rate 97 102 H Blood Pressure BP Systolic BP Diastolic Pulse Ox 100 05/02/22 13:14 05/02/22 13:14 05/02/22 13:18 Temperature Temperature Source Pulse Rate 101 H 105 H Blood Pressure 131/78 H BP Systolic 131 BP Diastolic 78 Pulse Ox 05/02/22 13:18 05/02/22 13:19 05/02/22 13:19 Temperature Temperature Source Pulse Rate 105 H Blood Pressure 136/82 H BP Systolic 136 BP Diastolic 82 Pulse Ox 100 05/02/22 13:23 05/02/22 13:23 05/02/22 13:24 Temperature Temperature Source Pulse Rate 97 Blood Pressure 123/62 H BP Systolic 123 BP Diastolic 62 Pulse Ox 100 05/02/22 13:24 05/02/22 13:28 05/02/22 13:28 Temperature Temperature Source Pulse Rate 98 95 Blood Pressure BP Systolic BP Diastolic Pulse Ox 100 05/02/22 13:33 05/02/22 13:33 05/02/22 13:35 Temperature Temperature Source Pulse Rate 101 H 98 Blood Pressure BP Systolic BP Diastolic Pulse Ox 100 05/02/22 13:35 05/02/22 13:35 05/02/22 13:38 Temperature 98.8 F Temperature Source Pulse Rate 95 Blood Pressure BP Systolic BP Diastolic Pulse Ox 85 05/02/22 13:38 05/02/22 13:43 05/02/22 13:43 Temperature Temperature Source Pulse Rate 104 H Blood Pressure BP Systolic BP Diastolic Pulse Ox 100 100 05/02/22 13:48 05/02/22 13:48 05/02/22 13:53 Temperature Temperature Source Pulse Rate 108 H 106 H Blood Pressure BP Systolic BP Diastolic Pulse Ox 100 05/02/22 13:53 05/02/22 13:58 05/02/22 13:58 Temperature Temperature Source Pulse Rate 117 H Blood Pressure BP Systolic BP Diastolic Pulse Ox 100 100 05/02/22 14:03 05/02/22 14:03 05/02/22 14:07 Temperature Temperature Source Pulse Rate 106 H Blood Pressure 111/57 L BP Systolic 111 BP Diastolic 57 Pulse Ox 100 05/02/22 14:07 05/02/22 14:08 05/02/22 14:08 Temperature Temperature Source Pulse Rate 98 106 H Blood Pressure BP Systolic BP Diastolic Pulse Ox 100 05/02/22 14:13 05/02/22 14:13 05/02/22 14:16 Temperature Temperature Source Pulse Rate 108 H Blood Pressure 109/54 L BP Systolic 109 BP Diastolic 54 Pulse Ox 100 05/02/22 14:16 05/02/22 14:18 05/02/22 14:18 Temperature Temperature Source Pulse Rate 100 102 H Blood Pressure BP Systolic BP Diastolic Pulse Ox 100 05/02/22 14:23 05/02/22 14:23 05/02/22 14:23 Temperature Temperature Source Pulse Rate 114 H Blood Pressure 108/59 L BP Systolic 108 BP Diastolic 59 Pulse Ox 100 05/02/22 14:28 05/02/22 14:28 05/02/22 14:33 Temperature Temperature Source Pulse Rate 130 H 117 H Blood Pressure BP Systolic BP Diastolic Pulse Ox 100 05/02/22 14:33 05/02/22 15:41 05/02/22 15:41 Temperature Temperature Source Pulse Rate 96 Blood Pressure 147/71 H BP Systolic 147 BP Diastolic 71 Pulse Ox 100 05/02/22 15:41 05/02/22 15:43 05/02/22 15:43 Temperature Temperature Source Temporal Pulse Rate 102 H Blood Pressure BP Systolic BP Diastolic Pulse Ox 99 05/02/22 15:48 05/02/22 15:48 05/02/22 15:53 Temperature Temperature Source Pulse Rate 100 104 H Blood Pressure BP Systolic BP Diastolic Pulse Ox 99 05/02/22 15:53 05/02/22 15:56 05/02/22 15:56 Temperature Temperature Source Pulse Rate 104 H Blood Pressure 154/80 H BP Systolic 154 BP Diastolic 80 Pulse Ox 100 05/02/22 15:58 05/02/22 15:58 05/02/22 16:03 Temperature Temperature Source Pulse Rate 98 95 Blood Pressure BP Systolic BP Diastolic Pulse Ox 99 05/02/22 16:03 05/02/22 15:55 05/02/22 16:05 Temperature 97.2 F L Temperature Source Temporal Pulse Rate Blood Pressure BP Systolic BP Diastolic Pulse Ox 98 05/02/22 16:08 05/02/22 16:08 05/02/22 16:11 Temperature Temperature Source Pulse Rate 99 Blood Pressure 160/81 H BP Systolic 160 BP Diastolic 81 Pulse Ox 98 05/02/22 16:11 05/02/22 16:13 05/02/22 16:13 Temperature Temperature Source Pulse Rate 100 104 H Blood Pressure BP Systolic BP Diastolic Pulse Ox 98 05/02/22 16:18 05/02/22 16:18 05/02/22 16:23 Temperature Temperature Source Pulse Rate 106 H 111 H Blood Pressure BP Systolic BP Diastolic Pulse Ox 99 05/02/22 16:23 05/02/22 16:26 05/02/22 16:26 Temperature Temperature Source Pulse Rate 100 Blood Pressure 119/59 L BP Systolic 119 BP Diastolic 59 Pulse Ox 98 05/02/22 16:28 05/02/22 16:28 05/02/22 16:32 Temperature 97.3 F L Temperature Source Pulse Rate 108 H Blood Pressure BP Systolic BP Diastolic Pulse Ox 99 05/02/22 16:26 05/02/22 16:33 05/02/22 16:33 Temperature Temperature Source Temporal Pulse Rate 110 H Blood Pressure BP Systolic BP Diastolic Pulse Ox 99 05/02/22 16:26 05/02/22 16:38 05/02/22 16:38 Temperature 97.4 F L Temperature Source Pulse Rate 102 H Blood Pressure BP Systolic BP Diastolic Pulse Ox 99 05/02/22 16:41 05/02/22 16:41 05/02/22 16:43 Temperature Temperature Source Pulse Rate 112 H 107 H Blood Pressure 121/60 H BP Systolic 121 BP Diastolic 60 Pulse Ox 05/02/22 16:43 05/02/22 16:48 05/02/22 16:48 Temperature Temperature Source Pulse Rate 106 H Blood Pressure BP Systolic BP Diastolic Pulse Ox 98 98 05/02/22 16:53 05/02/22 16:53 05/02/22 16:56 Temperature Temperature Source Pulse Rate 100 Blood Pressure 113/58 L BP Systolic 113 BP Diastolic 58 Pulse Ox 98 05/02/22 16:56 05/02/22 16:58 05/02/22 16:58 Temperature Temperature Source Pulse Rate 100 108 H Blood Pressure BP Systolic BP Diastolic Pulse Ox 99 05/02/22 17:03 05/02/22 17:03 05/02/22 17:08 Temperature Temperature Source Pulse Rate 103 H 101 H Blood Pressure BP Systolic BP Diastolic Pulse Ox 98 05/02/22 17:08 05/02/22 17:11 05/02/22 17:11 Temperature Temperature Source Pulse Rate 99 Blood Pressure 110/59 L BP Systolic 110 BP Diastolic 59 Pulse Ox 99 05/02/22 17:13 05/02/22 17:13 05/02/22 17:18 Temperature Temperature Source Pulse Rate 100 104 H Blood Pressure BP Systolic BP Diastolic Pulse Ox 98 05/02/22 17:18 05/02/22 17:23 05/02/22 17:23 Temperature Temperature Source Pulse Rate 105 H Blood Pressure BP Systolic BP Diastolic Pulse Ox 99 100 05/02/22 17:26 05/02/22 17:28 05/02/22 17:25 Temperature 97.0 F L Temperature Source Core Pulse Rate Blood Pressure 105/63 BP Systolic 105 BP Diastolic 63 Pulse Ox 05/02/22 17:28 05/02/22 17:28 05/02/22 17:25 Temperature 97.0 F L Temperature Source Pulse Rate 99 Blood Pressure BP Systolic BP Diastolic Pulse Ox 99 Weight: 123.831 kg Vital Signs Temp Pulse BP Pulse Ox 05/02/22 17:25 97.0 F L 05/02/22 17:28 99 05/02/22 17:28 99 05/02/22 17:28 97.0 F L 05/02/22 17:26 105/63 05/02/22 17:23 100 05/02/22 17:23 105 H 05/02/22 17:18 99 05/02/22 17:18 104 H 05/02/22 17:13 98 05/02/22 17:13 100 05/02/22 17:11 99 05/02/22 17:11 110/59 L 05/02/22 17:08 99 05/02/22 17:08 101 H 05/02/22 17:03 98 05/02/22 17:03 103 H 05/02/22 16:58 99 05/02/22 16:58 108 H 05/02/22 16:56 100 05/02/22 16:56 113/58 L 05/02/22 16:53 98 05/02/22 16:53 100 05/02/22 16:48 98 05/02/22 16:48 106 H 05/02/22 16:43 98 05/02/22 16:43 107 H 05/02/22 16:41 112 H 05/02/22 16:41 121/60 H 05/02/22 16:38 99 05/02/22 16:38 102 H 05/02/22 16:26 97.4 F L 05/02/22 16:33 99 05/02/22 16:33 110 H 05/02/22 16:32 97.3 F L 05/02/22 16:28 99 05/02/22 16:28 108 H 05/02/22 16:26 100 05/02/22 16:26 119/59 L 05/02/22 16:23 98 05/02/22 16:23 111 H 05/02/22 16:18 99 05/02/22 16:18 106 H 05/02/22 16:13 98 05/02/22 16:13 104 H 05/02/22 16:11 100 05/02/22 16:11 160/81 H 05/02/22 16:08 98 05/02/22 16:08 99 05/02/22 16:05 97.2 F L 05/02/22 16:03 98 05/02/22 16:03 95 05/02/22 15:58 99 05/02/22 15:58 98 05/02/22 15:56 104 H 05/02/22 15:56 154/80 H 05/02/22 15:53 100 05/02/22 15:53 104 H 05/02/22 15:48 99 05/02/22 15:48 100 05/02/22 15:43 99 05/02/22 15:43 102 H 05/02/22 15:41 96 06/29/22 15:41 147/71 H 05/02/22 14:33 100 05/02/22 14:33 117 H 05/02/22 14:28 100 05/02/22 14:28 130 H 05/02/22 14:23 100 05/02/22 14:23 114 H 05/02/22 14:23 108/59 L 05/02/22 14:18 100 05/02/22 14:18 102 H 05/02/22 14:16 100 05/02/22 14:16 109/54 L 05/02/22 14:13 100 05/02/22 14:13 108 H 05/02/22 14:08 100 05/02/22 14:08 106 H 05/02/22 14:07 98 05/02/22 14:07 111/57 L 05/02/22 14:03 100 05/02/22 14:03 106 H 05/02/22 13:58 100 05/02/22 13:58 117 H 05/02/22 13:53 100 05/02/22 13:53 106 H 05/02/22 13:48 100 05/02/22 13:48 108 H 05/02/22 13:43 100 05/02/22 13:43 104 H 05/02/22 13:38 100 05/02/22 13:38 95 05/02/22 13:35 98.8 F 05/02/22 13:35 85 05/02/22 13:35 98 05/02/22 13:33 100 05/02/22 13:33 101 H 05/02/22 13:28 100 05/02/22 13:28 95 05/02/22 13:24 98 05/02/22 13:24 123/62 H 05/02/22 13:23 100 05/02/22 13:23 97 05/02/22 13:19 105 H 05/02/22 13:19 136/82 H 05/02/22 13:18 100 05/02/22 13:18 105 H 05/02/22 13:14 101 H 05/02/22 13:14 131/78 H 05/02/22 13:13 100 05/02/22 13:13 102 H 05/02/22 13:09 97 05/02/22 13:09 132/75 H 05/02/22 13:08 99 05/02/22 13:08 104 H 05/02/22 13:04 94 05/02/22 13:04 126/62 H 05/02/22 13:02 100 05/02/22 13:02 106 H 05/02/22 12:59 116 H 05/02/22 12:59 125/60 H 05/02/22 12:57 100 05/02/22 12:57 113 H 05/02/22 12:54 115 H 05/02/22 12:54 125/66 H 05/02/22 12:52 100 05/02/22 12:52 123 H 05/02/22 12:49 112 H 05/02/22 12:49 122/71 H 05/02/22 12:47 100 05/02/22 12:47 125 H 05/02/22 12:42 100 05/02/22 12:42 120 H 05/02/22 11:10 97.9 F 05/02/22 11:11 98 05/02/22 11:11 101 H 05/02/22 11:11 123/76 H 05/02/22 11:11 97.9 F 05/02/22 10:10 98.8 F 05/02/22 10:10 102 H 05/02/22 10:10 116/60 05/02/22 08:51 98.2 F 05/02/22 08:51 98.2 F 05/02/22 08:50 97 05/02/22 08:50 101/57 L Lab tests last 48H 05/02/22 05/02/22 07:35 07:35 WBC 11.9 H RBC 4.11 L Hgb 11.8 L Hct 35.8 L MCV 87.1 MCH 28.7 MCHC 33.0 RDW Std Deviation 46.6 H RDW Coeff of Tiburcio 14.7 H Plt Count 313 MPV 10.6 Immature Gran % (Auto) 1.000 H Neut % (Auto) 71.8 H Lymph % (Auto) 18.2 L [place] % (Auto) 7.4 Eos % (Auto) 1.4 Baso % (Auto) 0.2 Absolute Neuts (auto) 8.6 H Absolute Lymphs (auto) 2.17 Nucleated RBC % 0 Blood Type O POSITIVE Antibody Screen NEGATIVE Micro - Preliminary and Final Results 05/02/22 08:00 SARS-CoV-2 Antigen (Rapid) - Final Nasal Secretion Delivery/Maternal Data Labor/Delivery Date of rupture of membranes: 05/02/22 Time of rupture of membranes: 09:38 Amniotic fluid color at rupture: Clear Type of delivery: Vaginal Labor description: Induced-Oxytocin and Induced-AROM Vacuum Extraction: N/A Infant presentation: Cephalic Complications: None Maternal Data Maternal age: 29 : 3 Para: 2 Vital Signs Vital Signs Vital Signs: 05/02/22 08:50 05/02/22 08:50 05/02/22 08:51 Temperature 98.2 F Temperature Source Pulse Rate 97 Blood Pressure 101/57 L BP Systolic 101 BP Diastolic 57 Pulse Ox 05/02/22 08:51 05/02/22 08:51 05/02/22 10:10 Temperature 98.2 F Temperature Source Temporal Pulse Rate Blood Pressure 116/60 BP Systolic 116 BP Diastolic 60 Pulse Ox 05/02/22 10:10 05/02/22 10:10 05/02/22 10:10 Temperature 98.8 F Temperature Source Temporal Pulse Rate 102 H Blood Pressure BP Systolic BP Diastolic Pulse Ox 05/02/22 11:11 05/02/22 11:10 05/02/22 11:11 Temperature 97.9 F Temperature Source Temporal Pulse Rate Blood Pressure 123/76 H BP Systolic 123 BP Diastolic 76 Pulse Ox 05/02/22 11:11 05/02/22 11:11 05/02/22 11:10 Temperature 97.9 F Temperature Source Pulse Rate 101 H Blood Pressure BP Systolic BP Diastolic Pulse Ox 98 05/02/22 12:42 05/02/22 12:42 05/02/22 12:47 Temperature Temperature Source Pulse Rate 120 H 125 H Blood Pressure BP Systolic BP Diastolic Pulse Ox 100 05/02/22 12:47 05/02/22 12:49 05/02/22 12:49 Temperature Temperature Source Pulse Rate 112 H Blood Pressure 122/71 H BP Systolic 122 BP Diastolic 71 Pulse Ox 100 05/02/22 12:52 05/02/22 12:52 05/02/22 12:54 Temperature Temperature Source Pulse Rate 123 H Blood Pressure 125/66 H BP Systolic 125 BP Diastolic 66 Pulse Ox 100 05/02/22 12:54 05/02/22 12:57 05/02/22 12:57 Temperature Temperature Source Pulse Rate 115 H 113 H Blood Pressure BP Systolic BP Diastolic Pulse Ox 100 05/02/22 12:59 05/02/22 12:59 05/02/22 13:02 Temperature Temperature Source Pulse Rate 116 H 106 H Blood Pressure 125/60 H BP Systolic 125 BP Diastolic 60 Pulse Ox 05/02/22 13:02 05/02/22 13:04 05/02/22 13:04 Temperature Temperature Source Pulse Rate 94 Blood Pressure 126/62 H BP Systolic 126 BP Diastolic 62 Pulse Ox 100 05/02/22 13:08 05/02/22 13:08 05/02/22 13:09 Temperature Temperature Source Pulse Rate 104 H Blood Pressure 132/75 H BP Systolic 132 BP Diastolic 75 Pulse Ox 99 05/02/22 13:09 05/02/22 13:13 05/02/22 13:13 Temperature Temperature Source Pulse Rate 97 102 H Blood Pressure BP Systolic BP Diastolic Pulse Ox 100 05/02/22 13:14 05/02/22 13:14 05/02/22 13:18 Temperature Temperature Source Pulse Rate 101 H 105 H Blood Pressure 131/78 H BP Systolic 131 BP Diastolic 78 Pulse Ox 05/02/22 13:18 05/02/22 13:19 05/02/22 13:19 Temperature Temperature Source Pulse Rate 105 H Blood Pressure 136/82 H BP Systolic 136 BP Diastolic 82 Pulse Ox 100 05/02/22 13:23 05/02/22 13:23 05/02/22 13:24 Temperature Temperature Source Pulse Rate 97 Blood Pressure 123/62 H BP Systolic 123 BP Diastolic 62 Pulse Ox 100 05/02/22 13:24 05/02/22 13:28 05/02/22 13:28 Temperature Temperature Source Pulse Rate 98 95 Blood Pressure BP Systolic BP Diastolic Pulse Ox 100 05/02/22 13:33 05/02/22 13:33 05/02/22 13:35 Temperature Temperature Source Pulse Rate 101 H 98 Blood Pressure BP Systolic BP Diastolic Pulse Ox 100 05/02/22 13:35 05/02/22 13:35 05/02/22 13:38 Temperature 98.8 F Temperature Source Pulse Rate 95 Blood Pressure BP Systolic BP Diastolic Pulse Ox 85 05/02/22 13:38 05/02/22 13:43 05/02/22 13:43 Temperature Temperature Source Pulse Rate 104 H Blood Pressure BP Systolic BP Diastolic Pulse Ox 100 100 05/02/22 13:48 05/02/22 13:48 05/02/22 13:53 Temperature Temperature Source Pulse Rate 108 H 106 H Blood Pressure BP Systolic BP Diastolic Pulse Ox 100 05/02/22 13:53 05/02/22 13:58 05/02/22 13:58 Temperature Temperature Source Pulse Rate 117 H Blood Pressure BP Systolic BP Diastolic Pulse Ox 100 100 05/02/22 14:03 05/02/22 14:03 05/02/22 14:07 Temperature Temperature Source Pulse Rate 106 H Blood Pressure 111/57 L BP Systolic 111 BP Diastolic 57 Pulse Ox 100 05/02/22 14:07 05/02/22 14:08 05/02/22 14:08 Temperature Temperature Source Pulse Rate 98 106 H Blood Pressure BP Systolic BP Diastolic Pulse Ox 100 05/02/22 14:13 05/02/22 14:13 05/02/22 14:16 Temperature Temperature Source Pulse Rate 108 H Blood Pressure 109/54 L BP Systolic 109 BP Diastolic 54 Pulse Ox 100 05/02/22 14:16 05/02/22 14:18 05/02/22 14:18 Temperature Temperature Source Pulse Rate 100 102 H Blood Pressure BP Systolic BP Diastolic Pulse Ox 100 05/02/22 14:23 05/02/22 14:23 05/02/22 14:23 Temperature Temperature Source Pulse Rate 114 H Blood Pressure 108/59 L BP Systolic 108 BP Diastolic 59 Pulse Ox 100 05/02/22 14:28 05/02/22 14:28 05/02/22 14:33 Temperature Temperature Source Pulse Rate 130 H 117 H Blood Pressure BP Systolic BP Diastolic Pulse Ox 100 05/02/22 14:33 05/02/22 15:41 05/02/22 15:41 Temperature Temperature Source Pulse Rate 96 Blood Pressure 147/71 H BP Systolic 147 BP Diastolic 71 Pulse Ox 100 05/02/22 15:41 05/02/22 15:43 05/02/22 15:43 Temperature Temperature Source Temporal Pulse Rate 102 H Blood Pressure BP Systolic BP Diastolic Pulse Ox 99 05/02/22 15:48 05/02/22 15:48 05/02/22 15:53 Temperature Temperature Source Pulse Rate 100 104 H Blood Pressure BP Systolic BP Diastolic Pulse Ox 99 05/02/22 15:53 05/02/22 15:56 05/02/22 15:56 Temperature Temperature Source Pulse Rate 104 H Blood Pressure 154/80 H BP Systolic 154 BP Diastolic 80 Pulse Ox 100 05/02/22 15:58 05/02/22 15:58 05/02/22 16:03 Temperature Temperature Source Pulse Rate 98 95 Blood Pressure BP Systolic BP Diastolic Pulse Ox 99 05/02/22 16:03 05/02/22 15:55 05/02/22 16:05 Temperature 97.2 F L Temperature Source Temporal Pulse Rate Blood Pressure BP Systolic BP Diastolic Pulse Ox 98 05/02/22 16:08 05/02/22 16:08 05/02/22 16:11 Temperature Temperature Source Pulse Rate 99 Blood Pressure 160/81 H BP Systolic 160 BP Diastolic 81 Pulse Ox 98 05/02/22 16:11 05/02/22 16:13 05/02/22 16:13 Temperature Temperature Source Pulse Rate 100 104 H Blood Pressure BP Systolic BP Diastolic Pulse Ox 98 05/02/22 16:18 05/02/22 16:18 05/02/22 16:23 Temperature Temperature Source Pulse Rate 106 H 111 H Blood Pressure BP Systolic BP Diastolic Pulse Ox 99 05/02/22 16:23 05/02/22 16:26 05/02/22 16:26 Temperature Temperature Source Pulse Rate 100 Blood Pressure 119/59 L BP Systolic 119 BP Diastolic 59 Pulse Ox 98 05/02/22 16:28 05/02/22 16:28 05/02/22 16:32 Temperature 97.3 F L Temperature Source Pulse Rate 108 H Blood Pressure BP Systolic BP Diastolic Pulse Ox 99 05/02/22 16:26 05/02/22 16:33 05/02/22 16:33 Temperature Temperature Source Temporal Pulse Rate 110 H Blood Pressure BP Systolic BP Diastolic Pulse Ox 99 05/02/22 16:26 05/02/22 16:38 05/02/22 16:38 Temperature 97.4 F L Temperature Source Pulse Rate 102 H Blood Pressure BP Systolic BP Diastolic Pulse Ox 99 05/02/22 16:41 05/02/22 16:41 05/02/22 16:43 Temperature Temperature Source Pulse Rate 112 H 107 H Blood Pressure 121/60 H BP Systolic 121 BP Diastolic 60 Pulse Ox 05/02/22 16:43 05/02/22 16:48 05/02/22 16:48 Temperature Temperature Source Pulse Rate 106 H Blood Pressure BP Systolic BP Diastolic Pulse Ox 98 98 05/02/22 16:53 05/02/22 16:53 05/02/22 16:56 Temperature Temperature Source Pulse Rate 100 Blood Pressure 113/58 L BP Systolic 113 BP Diastolic 58 Pulse Ox 98 05/02/22 16:56 05/02/22 16:58 05/02/22 16:58 Temperature Temperature Source Pulse Rate 100 108 H Blood Pressure BP Systolic BP Diastolic Pulse Ox 99 05/02/22 17:03 05/02/22 17:03 05/02/22 17:08 Temperature Temperature Source Pulse Rate 103 H 101 H Blood Pressure BP Systolic BP Diastolic Pulse Ox 98 05/02/22 17:08 05/02/22 17:11 05/02/22 17:11 Temperature Temperature Source Pulse Rate 99 Blood Pressure 110/59 L BP Systolic 110 BP Diastolic 59 Pulse Ox 99 05/02/22 17:13 05/02/22 17:13 05/02/22 17:18 Temperature Temperature Source Pulse Rate 100 104 H Blood Pressure BP Systolic BP Diastolic Pulse Ox 98 05/02/22 17:18 05/02/22 17:23 05/02/22 17:23 Temperature Temperature Source Pulse Rate 105 H Blood Pressure BP Systolic BP Diastolic Pulse Ox 99 100 05/02/22 17:26 05/02/22 17:28 05/02/22 17:25 Temperature 97.0 F L Temperature Source Core Pulse Rate Blood Pressure 105/63 BP Systolic 105 BP Diastolic 63 Pulse Ox 05/02/22 17:28 05/02/22 17:28 05/02/22 17:25 Temperature 97.0 F L Temperature Source Pulse Rate 99 Blood Pressure BP Systolic BP Diastolic Pulse Ox 99 Weight Weight: 123.831 kg Body Mass Index (BMI) 48.3 General Weight: 123.831 kg
[2022-05-02] MEDS: 0.9% Saline Lock 10 ML Syringe IV (19:16)
[2022-05-03] VITALS: BP 100/56; PULSE 88; RESP 18; TEMP 36.9; O2SAT 97
[2022-05-03] MEDS: Ibuprofen 600 MG Tablet PO ×2 (00:09→07:58)
[2022-05-03 04:55] VITALS: BP 107/63; PULSE 88; RESP 16; TEMP 36.3; O2SAT 97
[2022-05-03 05:24] LABS: Hematocrit 35.9 % (37-47); Hemoglobin 11.7 g/dL (12.0-15.0); Mean Corp Hgb Conc 32.6 g/dL (32-36); Mean Corpuscular Hgb 28.7 pg (27.0-32.0); Mean Platelet Vol. 10.3 fl (6.2-12.0); Platelet Count 312 K/mm3 (150-450); RBC Distribution Width CV 14.9 % (11.6-14.6); RBC Distribution Width SD 47.8 fl (35.1-43.9); Red Blood Count 4.08 M/mm3 (4.2-5.4); White Blood Count 15.5 K/mm3 (4.4-11.0)
[2022-05-03 07:46] VITALS: BP 113/73; PULSE 75; RESP 16; TEMP 36.7; O2SAT 97
[2022-05-03 12:42] VITALS: BP 91/62; PULSE 84; RESP 16; TEMP 36.6; O2SAT 97
--- NOTE | 2022-05-03 13:43 | PCM.PROGNOTE ---
Subjective Subjective patient seen at bedside, doing well. Patient reports good pain control. lochia mild. Objective Data Objective Data Vital Signs: Vital Signs Temp Pulse Resp BP Pulse Ox O2 Del Method 97.8 F 84 16 91/62 97 Room Air 05/03/22 12:42 05/03/22 12:42 05/03/22 12:42 05/03/22 12:42 05/03/22 12:42 05/03/22 12:42 Oxygen Delivery Method Room Air Weight: 123.831 kg Body Mass Index (BMI) 48.3 Intake & Output: Intake and Output for Last 24 Hours 05/01/22 05/02/22 05/03/22 23:59 23:59 23:59 Intake Total 1587.94 / 1587.94 Output Total 780 / 780 Balance 807.94 / 807.94 Lab / Micro Data Result Diagrams: 05/03/22 05:17 Labs: Laboratory Results - last 24 hr 05/03/22 05:17: WBC 15.5 H, RBC 4.08 L, Hgb 11.7 L, Hct 35.9 L, MCV 88.0, MCH 28.7, MCHC 32.6, RDW Std Deviation 47.8 H, RDW Coeff of Tiburcio 14.9 H, Plt Count 312, MPV 10.3 Micro: Microbiology 05/02/22 08:00 Nasal Secretion SARS-CoV-2 Antigen (Rapid) - Final Physical Exam Const alert and oriented x3 General Appearance: cooperative HEENT normocephalic Neck General: normal visual inspection GI soft to palpation and non-distended GI Narrative: Fundus firm Extremity normal to inspection and no calf tenderness Skin no rashes or lesions noted Neuro oriented x3 and CN's II-XII intact bilaterally Psych mental status grossly normal Assessment & Plan Assessment/Plan (1) Vaginal delivery: PLAN: Plan PPD# 1 , Doing well Routine care pain mgmt ambulation dc home
--- NOTE | 2022-05-03 13:45 | DCINST_ITS ---
Discharge Instructions Diet Discharge Diet: No restrictions Activity Discharge Activity: Return to Normal Activity May resume sexual activity in: 4-6 weeks Dressing / Incision Call your doctor if you observe: Fever of 101 or Higher, Inability to urinate, Using more than 1 pad per hour, Dizziness, Chest pain and Uncontrolled pain Follow Up Care Please Follow Up With: Lauren Baxter CNM When: 1-2 weeks Test Results: Test results from this visit will be discussed in further detail at your follow- up appointment, if applicable. Discharge Plan Admission Admit Date/Time: 05/02/22 07:00 Attending Provider: Lauren Baxter Primary Care Provider: Vinny Williamson Discharge Orders/Prescriptions Prescriptions: No Action Prenatabs FA 1 TABLET tablet 1 tab PO DAILY aspirin acetaminophen 500 MG tablet 1,000 mg PO Q8H PRN PRN (Reason: Pain Score 1-3) Referrals / Follow Up: Vinny Williamson DO [Primary Care Provider] -
[2022-05-03 17:00] VITALS: BP 107/74; PULSE 90; RESP 16; TEMP 36.9; O2SAT 99
== END 2022-05-03 18:48 | disposition home or self-care (01) | DRG 807 ==
PROVIDERS: Admitting Provider Advanced Practice Midwife; PCP Student in an Organized Health Care Education/Training Program; Visit Provider Advanced Practice Midwife
DX: O99.214 Obesity complicating childbirth (principal); Z37.0 Single live birth; E66.01 Morbid (severe) obesity due to excess calories; O70.0 First degree perineal laceration during delivery; O69.81X0 Labor and delivery complicated by cord around neck, without compression, not applicable or unspecified; Z3A.39 39 weeks gestation of pregnancy; Z28.310 Unvaccinated for COVID-19; Z28.9 Immunization not carried out for unspecified reason
CPT/HCPCS: 59025; 59050; 85025; 85027; 86850; 86900; 86901; 87426; 99218; J7120; A4216; G0378